=== PATIENT | male | born 1960 | race Caucasian/White ===

== ENCOUNTER 2020-07-23 09:30 | Inpatient (IN) | payer OTHER, SELFPAY ==
[~2020-07-23] VITALS: Ht 167.6 cm; Wt 73.5 kg
[2020-07-23 09:33] VITALS: Ht 167.6 cm; Wt 73.5 kg
--- NOTE | 2020-07-23 11:07 | NUR ---
PT BIB SELF C/C ABD PAIN WITH N/V/D COUGH SOB GENERALIZE WEAKNESS X 2 WKS SAW BY ER PLACED ON MONITOR
[2020-07-23 11:26] LABS: CALCIUM 9.3 mg/dL (8.5-10.1); CARBON DIOXIDE 29.3 mmol/L (21-32); CHLORIDE SERUM 88 mmol/L (98-107); CREATININE SERUM 1.3 mg/dL (0.7-1.3); GFR1 > 60 mL/min; GLUCOSE SERUM 346 mg/dL (74-106); POTASSIUM SERUM 4.5 mmol/L (3.5-5.1); SODIUM SERUM 127 mmol/L (136-145)
[2020-07-23 11:30] LABS: ALKALINE PHOSPHATASE 102 U/L (46-116); ALT/SGPT 44 U/L (16-63); AST/SGOT 42 U/L (15-37); BILIRUBIN TOTAL 1.12 mg/dL (0.20-1.00); LACTIC DEHYDROGENASE (LDH) 254 U/L (100-190)
[2020-07-23 11:32] LABS: ALBUMIN 2.9 g/dL (3.4-5.0); TOTAL PROTEIN, SERUM 9.7 g/dL (6.4-8.2)
[2020-07-23 11:42] LABS: C REACTIVE PROTEIN 17.6 mg/dL (<=0.9)
[2020-07-23 12:04] LABS: PLATELET COUNT 234 x10^3mcL (130-400); RED CELL DISTRIBUTION WIDTH 11.5 % (11.5-14.5)
--- NOTE | 2020-07-23 12:16 | NUR ---
PT PLACED ON FULL CM
--- NOTE | 2020-07-23 12:49 | NUR ---
TAKEN TO RADIOLOGY FOR CT
[2020-07-23] MEDS ORDERED: RELION HUMUL100 U/M2 (13:38)
[2020-07-23] MEDS ORDERED: HORIZANT300 MG PO (13:38)
[2020-07-23 13:53] LABS: BAND NEUTROPHIL 1 % (0-10); MONOCYTE 8 % (0-7); SEGMENTED NEUTROPHILS 71 % (37-75); rbc morphology (normal/abnorm) NORMAL (NORMAL)
--- NOTE | 2020-07-23 13:55 | NUR ---
PT SLEEPING AT THIS TIME
--- NOTE | 2020-07-23 14:55 | NUR ---
PT DENIES DISCOMFORT
--- NOTE | 2020-07-23 17:15 | NUR ---
INSULIN GIVEN PER SLIDING SCALE
--- NOTE | 2020-07-23 17:22 | NUR ---
DINNER TRAY GIVEN
--- NOTE | 2020-07-23 19:11 | NUR ---
REPORT RECIEVED FROM NIURKA MENA. I WILL ASSUME FURTHER CARE OF THIS PT
--- NOTE | 2020-07-23 19:27 | NUR ---
CALLED TELE UNIT TO GIVE REPORT. PER UBALDO RN PT NURSE WILL BE FATUMA. PER UBALDO "FATUMA IS STUCK IN TRAFFIC AND IS NOT HERE YET". WILL CALL BACK.
[2020-07-23 19:29] LABS: UA SPECIFIC GRAVITY >=1.030 (1.005-1.035); urine erythrocyte NEGATIVE (NEGATIVE)
[2020-07-23 19:30] LABS: microscopic required? YES
--- NOTE | 2020-07-23 19:54 | NUR ---
PT NOTED SLEEPING IN ER [facility] AT THIS TIME. PT EASILY AROUSABLE. PT SPEAKING IN FULL, CLEAR SENTENCES. PT O2SAT NOTED AT 87%, O2 TITRATED UP TO 4L. PT O2SAT NOW AT 95%. EDUCATED PT ON DEEP BREATHING AND REPOSITIONING. WILL CONTINUE TO MONITOR
--- NOTE | 2020-07-23 20:02 | NUR ---
REPORT CALLED TO KATLIN BURRIS. SHE WILL ASSUME FURTHER CARE OF THIS PT
--- NOTE | 2020-07-23 21:20 | NUR ---
RECEIVED PATIENT IN BED ALERT AND ORIENTED, LAYING IN BED MOANING AND HOLDING HIS HEAD. PATIENT ABLE TO ANSWER IN FULL SENTENCES, REPORT GOLDBERG 8/10. MILD DISTRESS NOTED. TELE 19 NOTED ON PATIENT, UNABLE TO READ D/T LOCKED. VITAL SIGN HR 119 AND T99.; IV TO LFA INTACT/PATENT, ATTACH TO IVF. CALL LIGHT WITHIN REACH. CARE ENDORSE TO GAGAN AND ASK RN TO CHANGED TELE BOX.
[2020-07-23 21:26] VITALS: BP 115/83
--- NOTE | 2020-07-23 22:30 | NUR ---
ASSESSMENT COMPLETE PLAN OF CARE REVIEWED WILL CON TINUE TO MONITOR AND ASSESS CONDITION GUARDED
--- NOTE | 2020-07-24 00:05 | NUR ---
NO SIGNIFICANT CHANGES AT THIS TIME CALL LIGHT IN REACH CONDITION GUARDED
--- NOTE | 2020-07-24 04:59 | NUR ---
NO SIGNIFICANT CHANGES NOTED ALL NEEDS ANTICIPATED AND MET CONDITION GUARDED
[2020-07-24 05:52] VITALS: BP 139/98
--- NOTE | 2020-07-24 06:36 | NUR ---
iv SITE NOTED TO BE OUT ON ROUNDS, NEW SITE 24G AT RIGHT ac STARTED GIID BKIID RETURN AND INFUSING WELL, PT TOLERATED WELL ALL NEEDS ANTICIPATEED AND MET
[2020-07-24 08:01] LABS: BASOPHIL % 0.3 % (0-2); PLATELET COUNT 213 x10^3mcL (130-400); RED CELL DISTRIBUTION WIDTH 12.5 % (11.5-14.5)
[2020-07-24 08:12] LABS: CALCIUM 8.9 mg/dL (8.5-10.1); CARBON DIOXIDE 26.2 mmol/L (21-32); CHLORIDE SERUM 94 mmol/L (98-107); CREATININE SERUM 0.9 mg/dL (0.7-1.3); GFR1 > 60 mL/min; GLUCOSE SERUM 208 mg/dL (74-106); POTASSIUM SERUM 3.9 mmol/L (3.5-5.1); SODIUM SERUM 131 mmol/L (136-145)
[2020-07-24 08:32] VITALS: BP 94/60
--- NOTE | 2020-07-24 10:26 | NUR ---
PATIENT IS AOX4, RESPIRATIONS SHALLOW ON 15L NONREBREATHER MASK, LUNGS DIMINISHED BILATERALLY. SINUS TACHYCARDIA ON SWATCH FOLDER. TOLERATED BREAKFAST WELL. GENERALIZED WEAKNESS NOTED. UPDATED PT ON PLAN OF CARE. WILL CONTINUE TO MONITOR.
[2020-07-24 12:08] VITALS: BP 117/85
--- NOTE | 2020-07-24 13:35 | NUR ---
SPOKE TO LISBETH WEBBER JR, SON, UPDATED ON PLAN OF CARE.
[2020-07-24 17:03] VITALS: BP 121/80
--- NOTE | 2020-07-24 18:15 | NUR ---
PATIENT REMAINS ON 15L NONREBREATHER MASK, LETHARGIC, DIAPHORETIC, BUT EASILY AROUSABLE. ABLE TO TOLERATE MEALS BUT WITH POOR APPETITE. PATIENT HAS BEEN DIAPHORETIC WITH CHILLS, AFEBRILE. VITAL SIGNS STABLE. URINE IS DARK LUBA, ADEQUATE AMOUNT. BED BATH PROVIDED. CONVALESCENT PLASMA CONSENT SIGNED AND IN CHART. WILL ENDORSE TO NIGHT RN.
--- NOTE | 2020-07-24 19:30 | NUR ---
RECEIVED PT IN BED, RESTING COMFORTABLY. A/O X 4 ABLE TO FOLLOW COMMNADS, ABLE TO MAKE NEEDS KNOWN, SPEECH IS CLR, NO GOLDBERG OR DIZZINESS. LUNGS SOUNDS DIMINISHED BILATERALLY, RESP IS LABORED AND EVEN, REPORTS SOB ON EXERTION, ON 15L NBM WITH SPO2 OF 99%. RADIAL AND PEDAL PULSES PRESENT, NO EDEMA NOTED. NO C/O CHEST PAIN, ON TELE #23 NSR WITH ELEVATED T WAVE. ABD FLAT AND SOFT, ACTIVE BS PRESENT X 4 QUADS, NO C/O NVD, VOIDS FREELY. NO REPORTED DISCOMFORT OR PAIN. SKIN IS WARM DRY AND INTACT, IV SITE ON THE RH PATENT AND FLUSHING WELL INFUSING NS AT 50ML/HR. PT OBSERVED WITH GENEREALIZED WEKANESS, REPORTS FEELING FATIGUED. BED TO LOWEST POSITION, CALL LIGHT WITHIN REACH, WILL CONT TO MONITOR PT FOR CHANGES IN CONDITION.
[2020-07-24 20:54] VITALS: BP 110/72
[2020-07-25 05:08] VITALS: BP 101/73
--- NOTE | 2020-07-25 06:57 | NUR ---
PT IN BED RESTING COMFORTABLY, NO C/O PAIN NO ACUTE DISTRESS NOTED. RESP IS EVEN AND UNLABORED, PRODUCTIVE COUGH OBSERVED. CONVALSCENT PLASMA INITIATED, PRE VS WNL. PT REASSESSED AFTER 15 MINS, VS TEMP 97.7, HR 88, BP 104/68, RR 20 96% ON 15L NBM. PT HAS NO C/O OF FEVER AND CHILLS, NI FLANK PAIN, NO SOB OR DIFFICULTY BREATHING AT THIS TIME. INSTRUCTED PT TO REPORT IMMEDIATELY IF HE EXPERIENCE THE SAID SIGNS AND SYMPTOMS. BED TO LOWEST POSITION, CALL LIGHT WITHIN REACH, WILL CONT TO MONITOR FOR CHANGES IN CONDITION AND ENDORSE TO NEXT SHIFT NURSE.
[2020-07-25 08:13] LABS: BASOPHIL % 0.1 % (0-2); PLATELET COUNT 272 x10^3mcL (130-400); RED CELL DISTRIBUTION WIDTH 11.6 % (11.5-14.5)
[2020-07-25 08:46] LABS: CALCIUM 8.8 mg/dL (8.5-10.1); CARBON DIOXIDE 28.9 mmol/L (21-32); CHLORIDE SERUM 100 mmol/L (98-107); CREATININE SERUM 0.8 mg/dL (0.7-1.3); GFR1 > 60 mL/min; GLUCOSE SERUM 190 mg/dL (74-106); POTASSIUM SERUM 4.2 mmol/L (3.5-5.1); SODIUM SERUM 135 mmol/L (136-145)
[2020-07-25 08:52] VITALS: BP 114/74
[2020-07-25 08:55] LABS: BILIRUBIN DIRECT 0.18 mg/dL (0.0-0.2); BILIRUBIN TOTAL 0.39 mg/dL (0.20-1.00); TOTAL PROTEIN, SERUM 7.1 g/dL (6.4-8.2)
[2020-07-25 08:56] LABS: ALBUMIN 1.9 g/dL (3.4-5.0)
--- NOTE | 2020-07-25 10:23 | NUR ---
The patient is alert and oriented x4. No complaints of pain, no shortness of breath noted. The patient is currently on non-rebreather on 15L. Oxygen saturation is around 96%-99%. Morning medications given per providers orders. Will continue to monitor. Call light within reach.
[2020-07-25 13:03] VITALS: BP 122/78
[2020-07-25 17:19] VITALS: BP 105/72
--- NOTE | 2020-07-25 19:30 | NUR ---
RECEIVED PT IN BED AWAKE RESTING COMFORTABLY. A/O X 4 ABLE TO MAKE NEEDS KNOWN, ABLE TO FOLLOW COMMANDS, SPEECH CLR, DENIES GOLDBERG OR DOZZINESS. RADIAL AND PEDAL PULSES PRESENT, NO EDEMA NOTED. ON TELE 23, NO C/O CHEST PAIN AT THIS TIME. RESP IS EVEN AND UNLABORED, SOB UPON EXERTION, CONT ON 14L NBM WITH SPO2 OF 95%. ABD FLAT AND SOFT, ACTIVE BS PRESENT, NO NVD. VOIDS FREELY, NO C/O DISCOMFORT. SKIN IS WARM, DRY AND INTACT.STATED HE IS FEELING SO MUCH BETTER TODAY. BED TO LOWEST POSITION, CALL LIGHT WITHIN REACH, WILL CONT TO MONITOR FOR CHANGES IN CONDITION.
--- NOTE | 2020-07-25 20:20 | NUR ---
FROM AM SHIFT NURSE REPORT PT IN THE MIDDLE OF INFUSING REMDESIVIR, IV LINE GOT INFILTARTED AND NEEDED TO RE INSERT A NEW IV ACCESS. RECEIVED PT WITH REMDESIVIR 39 ML LEFT TO BE INFUSED. NEW IV ACCESS SITE INSERTED ON THE RH 22G WITH GOOD BLOOD RETURN, PATENT AND FLUSHING WELL RE CONNECTED TO IV AND CONT TO INFUSE REMAINING AMOUNT 39ML OF REMDESIVIR.
[2020-07-25 21:55] VITALS: BP 100/52
--- NOTE | 2020-07-25 22:35 | NUR ---
SPOKE TO MATEO MENA TO GIVE LOVENOX SQ ORDERED.
--- NOTE | 2020-07-26 02:11 | NUR ---
PT UPSET AND EXPRESS FRUSTRATION REGARDING HOSPITAL STAY. PT VERBALIZED HE FEELS SO MUCH BETTER AND WANTS TO GO HOME. VERBALIZED HE HAS NOT RECEIVED UPDATE FROM THE DOCTOR.
[2020-07-26 06:24] VITALS: BP 135/82
--- NOTE | 2020-07-26 06:24 | NUR ---
PT IN BED RESTING WITH EYES CLOSED, EASILY AROUSABLE. NO C/O PAIN NO ACUTE DISTRESS NOTED. RESP IS EVEN AND UNLABORED, CONT ON 14L NBM. PT EXPRESSED FRUSTRATION, VERBALIZED HE WILL GO HOME TODAY BECAUSE STAFF ARE RUDE AND IGNORES HIM. ASKED PT TO ELABORATE AND GIVE MORE DETAILS OF WHAT HE IS FEELING HOWEVER PT DID NOT ELABORATE MORE. PT ALSO VERBALIZED HE HAS NOT SEEN AND TALKED TO A DOCTOR SINCE 2 DAYS. WILL ENDORSE TO AM SHIFT NURSE TO LET AM MEDICAL TEAM GIVE THE PT AN UPDATE REGARDING HIS CARE. BED TO LOWEST POSITION, CALL LIGHT WITHIN REACH, WILL CONT TO MONITOR FOR CHANGES IN CONDITON.
[2020-07-26 07:42] LABS: BILIRUBIN DIRECT 0.16 mg/dL (0.0-0.2); BILIRUBIN TOTAL 0.3 mg/dL (0.20-1.00); TOTAL PROTEIN, SERUM 6.6 g/dL (6.4-8.2)
[2020-07-26 09:05] VITALS: BP 125/89
--- NOTE | 2020-07-26 12:32 | NUR ---
THE PATIENT IS ALERT AND ORIENTED X4. THE PATIENT IS CURRENTLY ON OXYGEN 13L VIA NON-REBREATHER. O2 SAT.=99%. NO SHORTNESS OF BREATH NOTED. WILL DECREASE TO 12L, WILL CONTINUE TO MONITOR. CALL LIGHT WITHIN LIMITS.
[2020-07-26 13:40] VITALS: BP 139/93
--- NOTE | 2020-07-26 15:11 | NUR ---
Initial Nutrition Assessment 208A Tammy Gates - 59/M Dx: COVID 19(+), PNA, Hypoxia PMHx: DM PSHx: none Labs: (07/25) NA 135L, BUN 25H, BG 190H, POCBG 306H (07/24) BILI 1.12H, CRP 17.6H, BNP 238H, ALB 2.9H Meds: Lovenox, Protonix, Decadron, Mucinex, Gabapentin, Precision, Insulin, NACL, Remdesevir Diet: CCHO PO intake since admission: 94% x 4 meals Ht: 167.64cm/6' Wt: 73.482kg/ 162# BMI: 26.1 Bed scale: ISO IBW: 178#/81kg %IBW: 91% UBW: Age: 59 Food Allergies: NKFA Skin condition: No Rashes, skin dry warm/intact Blaine: 21 Edema: no edema noted Last BM: 07/24 Per H&P: This is a 59-year old male who presents to the ER with complaints of a 1-day history of nausea, increase in weakness and vomiting. Patient states that he was recently at [facility] 2 days ago and was tested for covid but has no received the results. RD Note (07/26): Patient is now in isolation with 14L NBM, attempting calling room no answer. He is eating optimally, Per RN report his appetite is coming back. Per RN note 07/26 today patient is frustrated with care and wants to go AMA. He is COVID (+) continues on treatments for management. Hx of DM2, BG very elevated in the 300s, including high CRP. No issues with patient chewing/swallowing, n/v/d. Will recommend adjusting to higher kcal diet to meet estimated need, will monitor. Problem with: N/V/D/C: none per RN Problems with: Chewing: Swallowing: none Current appetite: good, reports appetite coming back Recent wt change: unknown %wt change: unknown Vitamin/Supplement use: unknown Special diet at home: regular Physical activity: unknown Nutrition education given (specify specific nutrition education and handout given): no Food-drug interactions? Education given? no Estimated Nutritional Needs Based on [place] (81kg) body weight Energy: 2024 - 2429 kcal/day (25-30 kcal/kg) Protein: 81 - 97g/day (1.0-1.2 g/kg) infection Fluid: 2024 - 2430 mL/day (1 mL/kcal) Nutrition Diagnosis: Increased energy needs r/t viral infection aeb covid (+) infection, not meeting estimated needs Intervention 1. Modification to a CCHO (75gm) diet to meet energy needs. Monitor/Evaluate Goal: PO intake at least 75% of estimated needs Monitor: PO intake, Labs, GI function, estimated needs diet adjust F/U in 3-5 days as moderate risk 07/29-
--- NOTE | 2020-07-26 15:11 | NUR ---
1. Modification to a [facility] (75gm) diet to meet energy needs.
[2020-07-26 17:29] VITALS: BP 127/85
--- NOTE | 2020-07-26 18:08 | NUR ---
THE PATIENT IS ALERT AND ORIENTED X3-4. THE PATIENT COMPLAINS OF NO PAIN. OXYGEN AT 12L VIA NON-REBREATHER, O2 SAT.= 96%. NO SOB NOTED. ALL MEDICATIONS GIVEN PER PROVIDER ORDERS. WILL CONTINUE TO MONITOR. CALL LIGTH WITHIN REACH. MADE PATIENT COMOFORTABLE POSSIBLE.
--- NOTE | 2020-07-26 19:30 | NUR ---
RECEIVED PT IN BED, RESTING COMFORTABLY. A/OX 4 ABLE TO FOLLOW COMMANDS, ABLE TO MAKE NEEDS KNOWN, SPEECH CLR, NO GOLDBERG NO DIZZINESS. RESP IS EVEN AND UNLABORED, SOB ON EXERTION, ON 12L NBM, SPO2 94%, DRY COUGH, LUNGS SOUND BILATERALLY DIMINISHED. RADIAL AND PEDAL PULSES PRESENT, NO EDEMA NOTED. ON TELE 23, NO C/O CHEST PAIN. IV TO THE RFA, PATENT AND FLUSHING WELL. BED TO LOWEST PPSITION, CALL LIGHT WITHIN REACH. WILL CONT TO MONITOR FOR CHANGES IN CONDITION.
[2020-07-26 22:16] VITALS: BP 128/84
[2020-07-27 06:15] VITALS: BP 145/95
--- NOTE | 2020-07-27 07:10 | NUR ---
RECEIVED BEDSIDE REPORT FROM NIGHT RN. PT IN BED RESTING WITH EYES OPEN. PT AOX4 ABLE TO MAKE NEEDS KNOWN. PT DEINES CHEST PAIN AND SOB. RR EVEN AND UNLABORED ON 13L NRB. HOB ELEVATED. BED RAILS UPX2. PT ON TELE#23. ALL NEEDS MEET AT THIS TIME. CALL LIGHT WITHIN REACH. WILL CONTINUE TO MONITOR.
--- NOTE | 2020-07-27 07:43 | NUR ---
PT IN BED RESTING COMFORTABLY WITH EYES CLOSED. RESTING COMFORTABLY WITH EYES CLOSED. NO C/O PAIN, AT THIS TIME NO ACUTE DISTRESS NOTED. RESP EVEN AND UNLABORED, NEEDS ATTENDED AND MET, FREQUENT VISUAL MONITORING RENDERED. HAD AN EPISODE OF DESATURATION EARLIER TO 89%, INCREASED O2 TO 13L VIA NBC. SP02 AT 96% AT THIS TIME. BED TO LOWEST POSITION, ENDORSED CARE TO NEXT SHIFT NURSE.
[2020-07-27 07:47] LABS: BASOPHIL % 0.5 % (0-2); PLATELET COUNT 298 x10^3mcL (130-400); RED CELL DISTRIBUTION WIDTH 11.7 % (11.5-14.5)
[2020-07-27 07:51] LABS: CALCIUM 8.5 mg/dL (8.5-10.1); CARBON DIOXIDE 27.9 mmol/L (21-32); CHLORIDE SERUM 102 mmol/L (98-107); CREATININE SERUM 0.8 mg/dL (0.7-1.3); GFR1 > 60 mL/min; GLUCOSE SERUM 249 mg/dL (74-106); POTASSIUM SERUM 3.7 mmol/L (3.5-5.1); SODIUM SERUM 138 mmol/L (136-145)
[2020-07-27 08:39] LABS: BILIRUBIN DIRECT 0.13 mg/dL (0.0-0.2); BILIRUBIN TOTAL 0.3 mg/dL (0.20-1.00); TOTAL PROTEIN, SERUM 6.7 g/dL (6.4-8.2)
[2020-07-27 08:45] LABS: ALBUMIN 2.1 g/dL (3.4-5.0)
[2020-07-27 09:23] VITALS: BP 140/93
--- NOTE | 2020-07-27 09:25 | NUR ---
PT IN BED RESTING. PT RE-EDUCATED TO KEEP NRB MASK ON. PT ON TELE#23. PULSES PRESENT. NO EDEMA NOTED. PT DENIES CHEST PAIN AND PRESSURE. ALL NEEDS MEET AT THIS TIME. BED RAILS UPX2. CALL LIGHT WITHIN REACH. WILL CONTINUE TO MONITOR.
--- NOTE | 2020-07-27 12:00 | NUR ---
PT RESTING IN BED. PT DENIES CHEST PAIN AND PRESSURE. ALL NEEDS MEET AT THIS TIME. BED LOCKED IN LOWEST POSITION. BED RAILS UPX2. ALL NEEDS MEET AT THIS TIME.
[2020-07-27 12:31] VITALS: BP 131/87
[2020-07-27 17:21] VITALS: BP 140/89
[2020-07-27 20:13] VITALS: BP 130/86
--- NOTE | 2020-07-28 02:54 | NUR ---
ASSUMED CARE FROM NURSE VIERA. EYES CLOSED. ON 13LIMP OF O2 VIA NONREBREATHER MASK. SINUS RHYTHM ON TELE. HR 89/MIN. ON DROPLET/CONTACT ISOLATION.
[2020-07-28 04:51] VITALS: BP 116/80
--- NOTE | 2020-07-28 06:15 | NUR ---
EYES CLOSED, EASILY AWAKENED, GENERALIZED WEAKNESS. ON O2 AT 13 LPM VIA NONREBRREATHER MASK. HOB ELEVATED 45 DEG. IVF OF NS INFUSING AT 50ML/HR, IV SITE FREE FROM REDNESS OR SWELLING. CALL LIGHT WITHIN EASY REACH. KEPT ON DROPLET AND CONTACT ISOLATION.
--- NOTE | 2020-07-28 07:13 | NUR ---
IN NO ACUTE DISTRESS. ENDORSED TO REGISTRY NURSE LINDA
[2020-07-28 07:33] VITALS: BP 116/80
[2020-07-28 07:45] LABS: BASOPHIL % 0.5 % (0-2); RED CELL DISTRIBUTION WIDTH 11.8 % (11.5-14.5)
[2020-07-28 08:06] LABS: ALBUMIN 2.2 g/dL (3.4-5.0); ALKALINE PHOSPHATASE 73 U/L (46-116); ALT/SGPT 30 U/L (16-63); AST/SGOT 25 U/L (15-37); BILIRUBIN DIRECT 0.21 mg/dL (0.0-0.2); BILIRUBIN TOTAL 0.6 mg/dL (0.20-1.00); CALCIUM 8.9 mg/dL (8.5-10.1); CARBON DIOXIDE 31.8 mmol/L (21-32); CHLORIDE SERUM 99 mmol/L (98-107); CREATININE SERUM 0.8 mg/dL (0.7-1.3); GFR1 > 60 mL/min; GLUCOSE SERUM 137 mg/dL (74-106); SODIUM SERUM 135 mmol/L (136-145); TOTAL PROTEIN, SERUM 7.5 g/dL (6.4-8.2)
[2020-07-28 08:12] LABS: PLATELET COUNT 302 x10^3mcL (130-400)
[2020-07-28 09:00] VITALS: BP 97/62
--- NOTE | 2020-07-28 13:01 | NUR ---
PT. REQUESTED TO LEAVE THE HOSPITAL AMA. MYSELF, CHARGE NURSE AND DR. CHRISTOPHER AT THE PTS BEDSIDE. EXPLAINED RISK OF LEAVING WITHOUT COMPLETING TREATMENT AND NOT PROPERLY BEING EVALUATED WITHOUT OXYGEN. PT. HAS BEEN ON NRB 13L, NOW ON RA. HE AGREED TO LET ME CHECK HIS 02 SAT ON RA AND RANGED BETWEEN 88-92%. PT. INSTRUCTED ON NORMAL RANGES, STILL INSISTED THAT HIS BREATHING IS FINE AND HE WANTS TO LEAVE. IV REMOVED, LEFT AMBULATING INSTRUCTED TO CONTINUE TO SELF ISOLATE. MASK PROVIDED. INSTRUCTED TO CALL 911 OR RETURN TO ER IF SOB OR ANY CONCERNS.
== END 2020-07-28 13:15 | disposition left against medical advice (07) | DRG 177 ==
LOC: ED 09:30 → DU 13:25
PROVIDERS: Emergency Medicine; Internal Medicine Infectious Disease; ADMIT Internal Medicine; ATTEND Internal Medicine
PROC: XW033E5 Introduction of Remdesivir Anti-infective into Peripheral Vein, Percutaneous Approach, New Technology Group 5 (ICD-10-PCS; principal; 2020-07-25)
PROC: XW13325 Transfusion of Convalescent Plasma (Nonautologous) into Peripheral Vein, Percutaneous Approach, New Technology Group 5 (ICD-10-PCS; 2020-07-25)
DX: U07.1 COVID-19 (principal); J96.00 Acute respiratory failure, unspecified whether with hypoxia or hypercapnia; J12.89 Other viral pneumonia; R65.11 Systemic inflammatory response syndrome (SIRS) of non-infectious origin with acute organ dysfunction; E87.1 Hypo-osmolality and hyponatremia; E87.2 Acidosis; E11.9 Type 2 diabetes mellitus without complications; E86.0 Dehydration; K52.9 Noninfective gastroenteritis and colitis, unspecified; E87.5 Hyperkalemia; Z53.29 Procedure and treatment not carried out because of patient's decision for other reasons
CPT/HCPCS: 82962; 83880; 85378; 87804; C9113; G0378; J1100; J1650; J1815; J2405; J2543; J7030; J7040; U0003